=== PATIENT | male | born 1965 | race American Indian/Alaskan Native ===

== ENCOUNTER 2017-10-29 07:18 | Emergency (ER) | payer BC ==
[2017-10-29 07:59] VITALS: BP 154/84
--- NOTE | 2017-10-29 09:23 | Emergency Department Report ---
- General Chief Complaint: Upper Respiratory Infection Stated Complaint: SINUS INFECTION IN MY HEAD Time Seen by Provider: 10/29/17 09:14 Source: patient Mode of arrival: Ambulatory Limitations: No Limitations - History of Present Illness MD Complaint: rhinorrhea, nasal congestion, sinus pain -: Gradual, days(s) (3) Associated Symptoms: denies other symptoms - Related Data Allergies Allergy/AdvReac Type Severity Reaction Status Date / Time No Known Allergies Allergy Unverified 10/29/17 07:55 ED Review of Systems ROS: Stated complaint: SINUS INFECTION IN MY HEAD Other details as noted in HPI ED Past Medical Hx - Past Medical History Previous Medical History?: No - Surgical History Past Surgical History?: No - Social History Smoking Status: Never Smoker Substance Use Type: None ED Physical Exam - General Limitations: No Limitations General appearance: alert, in no apparent distress - Respiratory Respiratory exam: Absent: respiratory distress - Neurological Exam Neurological exam: Present: alert, oriented X3 - Psychiatric Psychiatric exam: Present: normal affect, normal mood ED Course Vital Signs 10/29/17 07:55 Temperature 98.9 F Pulse Rate 70 Respiratory 18 Rate Blood Pressure 154/84 O2 Sat by Pulse 97 Oximetry ED Medical Decision Making - Medical Decision Making Brief medical screening exam performed. No evidence of life or limb threatening emergency. No indications of infection. I recommended over-the- counter medications. Critical care attestation.: If time is entered above; I have spent that time in minutes in the direct care of this critically ill patient, excluding procedure time. ED Disposition Clinical Impression: Sinus headache, URI (upper respiratory infection) Disposition: MED SCREENING EXAM-LEFT Is pt being admited?: No Does the pt Need Aspirin: No Condition: Stable Instructions: Upper Respiratory Infection (ED) Referrals: ELLI GARCIA MD [Staff Physician] - 3-5 Days Forms: Work/School Release Form(ED)
== END 2017-10-29 10:10 | disposition left against medical advice (07) ==
LOC: ED 07:18
DX: J06.9 Acute upper respiratory infection, unspecified (principal)
CPT/HCPCS: 99282

== ENCOUNTER 2017-11-13 19:54 | Emergency (ER) | payer BC ==
[2017-11-13 20:32] VITALS: BP 144/92
[2017-11-13] MEDS ORDERED: ULTRAM ONE (22:59)
[2017-11-13] MEDS ORDERED: ULTRAM PO ONE (23:03)
[2017-11-13 23:23] LABS: Basophils % (Auto) 0.7 % (0.0-1.8); Eosinophils # (Auto) 0.1 K/mm3 (0.0-0.4); Eosinophils % (Auto) 1.4 % (0.0-4.3); Lymphocytes # (Auto) 1.9 K/mm3 (1.2-5.4); Lymphocytes % (Auto) 27.7 % (13.4-35.0); Mean Corpuscular HGB Conc 31 % (32-34); Mean Corpuscular Volume 82 fl (84-94); Monocytes # (Auto) 0.4 K/mm3 (0.0-0.8); Monocytes % (Auto) 6.5 % (0.0-7.3); Platelet Count 192 K/mm3 (140-440); Red Blood Count 5.35 M/mm3 (3.65-5.03); Red Cell Distribution Width 15.9 % (13.2-15.2)
[2017-11-13 23:24] LABS: Hematocrit 43.7 % (35.5-45.6); Hemoglobin 13.5 gm/dl (11.8-15.2); Mean Corpuscular Hemoglobin 25 pg (28-32)
--- NOTE | 2017-11-13 23:36 | XRay Report ---
FINAL REPORT PROCEDURE: XR HAND 3+V RT TECHNIQUE: RIGHT hand radiographs, AP, lateral, and oblique views. CPT 73018-BS HISTORY: right hand pain and swelling COMPARISON: No prior studies are available for comparison. FINDINGS: Fracture (s) and/or Dislocation(s): None . Alignment: Normal . Joint space(s): Normal . Soft tissues: Normal . Bone mineralization: Normal . Foreign bodies: None . IMPRESSION: Normal Examination .
[2017-11-13 23:38] LABS: Alanine Aminotransferase 17 units/L (7-56); Albumin 3.4 g/dL (3.9-5); BUN/Creatinine Ratio 13; Blood Urea Nitrogen 12 mg/dL (9-20); Calcium 10.3 mg/dL (8.4-10.2); Hemolysis Index 4; Uric Acid 6.8 mg/dL (3.5-7.6)
--- NOTE | 2017-11-14 00:36 | Emergency Department Report ---
Upper Extremity - HPI Chief Complaint: Extremity Problem,Nontraumatic Stated Complaint: RIGHT ARM PAIN Time Seen by Provider: 11/13/17 23:01 Upper Extremity: Right Hand Occurred When: 2 Days Symptoms: Yes Pain with Movement, Yes Swelling Other History: 52-year-old Chinese male comes to the emergency room with a complaint of right hand pain 7 out of 10 and swelling 2 days. Patient reports no injury to the extremity. He reports he is taking 800 mg 2 tablets ibuprofen around 3:30 PM today. Patient does report that he is left-handed and works at a [employer]. ED Review of Systems ROS: Stated complaint: RIGHT ARM PAIN Other details as noted in HPI Comment: All other systems reviewed and negative Constitutional: denies: chills, fever Musculoskeletal: joint swelling (right hand), arthralgia (right hand) ED Past Medical Hx - Past Medical History Previous Medical History?: No - Surgical History Past Surgical History?: No - Social History Smoking Status: Never Smoker Substance Use Type: None - Medications Home Medications: Home Medications Medication Instructions Recorded Confirmed Last Taken Type traMADol [Ultram 50 MG tab] 50 mg PO Q6HR PRN #10 tablet 10/29/17 Unknown Rx Ibuprofen [Motrin 800 MG tab] 800 mg PO Q8HR PRN #30 tablet 11/14/17 Unknown Rx traMADol [Ultram 50 MG tab] 50 mg PO Q4HR PRN #12 tablet 11/14/17 Unknown Rx Upper Extremity Exam - Exam General: Vital signs noted. No distress. Alert and acting appropriately. Shoulder Exam: Yes Normal Range of Motion in Shoulder, No Shoulder Tenderness, No Clavicle Tenderness, No Shoulder Deformity, No AC Joint Tenderness Hand: Yes Hand Tenderness, Yes Normal ROM in Digit(s) (nonerythematous no warmth non-cellulitic appearance), No Hand Deformity, No Digit Tenderness, No Digit(s) Deformity, No Tendon Dysfunction CMS Exam: Yes Normal Distal Pulses, Yes Normal Capillary Refill, Yes Normal Distal Sensation, No Broken Skin ED Course Vital Signs 11/13/17 11/13/17 20:19 20:31 Temperature 98.8 F 98.8 F Pulse Rate 64 60 Respiratory 18 18 Rate Blood Pressure 144/92 144/92 O2 Sat by Pulse 96 97 Oximetry ED Medical Decision Making - Medical Decision Making Patient has been evaluated by this provider fast track. Basic labs of CBC CMP ordered X-ray of right hand ordered which shows normal examination. Tramadol given given for pain management. Nontraumatic hand pain and swelling. We'll discharge patient on ibuprofen and tramadol. Patient needs to follow up with his primary care provider if symptoms persist or gets worse Critical care attestation.: If time is entered above; I have spent that time in minutes in the direct care of this critically ill patient, excluding procedure time. ED Disposition Clinical Impression: Right hand pain, Localized swelling on right hand Disposition: - TO HOME OR SELFCARE Is pt being admited?: No Does the pt Need Aspirin: No Condition: Stable Instructions: Arthralgia (ED) Additional Instructions: Please take pain medication as prescribed. You can apply ice to the hand. If his symptoms persist or gets worse please follow up with her primary care provider. Prescriptions: Ibuprofen [Motrin 800 MG tab] 800 mg PO Q8HR PRN #30 tablet PRN Reason: Pain , Severe (7-10) traMADol [Ultram 50 MG tab] 50 mg PO Q4HR PRN #12 tablet PRN Reason: Pain Referrals: PRIMARY CARE, [Primary Care Provider] - 3-5 Days Forms: Work/School Release Form(ED)
== END 2017-11-14 00:41 | disposition home or self-care (01) ==
LOC: ED 19:54
DX: M79.601 Pain in right arm (principal); M79.89 Other specified soft tissue disorders
CPT/HCPCS: 36415; 80053; 84550; 85025; 99284

== ENCOUNTER 2019-04-06 08:29 | Emergency (ER) | payer BC ==
[2019-04-06 08:35] VITALS: BP 185/87
--- NOTE | 2019-04-06 09:15 | Emergency Department Report ---
ED Abdominal Pain HPI - General Chief Complaint: Abdominal Pain Stated Complaint: FEVER,ABD PAIN, VOMITING Time Seen by Provider: 04/06/19 09:07 Source: patient Mode of arrival: Ambulatory Limitations: No Limitations - History of Present Illness Initial Comments: Mr. Mace is a healthy 53 yo male without significant past medical history who presents with 2 months of epigastric fullness worse at night. Also had indigestion. He's had intermittent vomiting constipation diarrhea for several months. He received colonoscopy 3 years ago which was normal. His PCP is Dr. Cortes at [facility]. 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 The symptoms occurs every few nights. Concerned about the cold sweats chills hot sweats that occur. Currently denies any pain. mother is healthy father is siblings are healthy MD Complaint: abdominal pain -: Gradual, month(s) (2) Location: epigastric Radiation: chest Severity: mild, moderate Quality: fullness Consistency: now resolved Improves With: other (nothing) Worsens With: other (at night) Context: other (has used laxatives and chavez seltzer for several months) Associated Symptoms: nausea, vomiting, diarrhea, constipation - Related Data Previous Rx's Medication Instructions Recorded Last Taken Type traMADoL [Ultram 50 MG tab] 50 mg PO Q6HR PRN #10 tablet 10/29/17 Unknown Rx Ibuprofen [Motrin 800 MG tab] 800 mg PO Q8HR PRN #30 tablet 11/14/17 Unknown Rx traMADoL [Ultram 50 MG tab] 50 mg PO Q4HR PRN #12 tablet 11/14/17 Unknown Rx Omeprazole 40 mg PO DAILY 30 Days #30 04/06/19 Unknown Rx capsule. Allergies Allergy/AdvReac Type Severity Reaction Status Date / Time No Known Allergies Allergy Verified 11/13/17 20:30 ED Review of Systems ROS: Stated complaint: FEVER,ABD PAIN, VOMITING Other details as noted in HPI Comment: All other systems reviewed and negative Constitutional: denies: fever, malaise Cardiovascular: denies: chest pain Gastrointestinal: abdominal pain, nausea, vomiting, diarrhea, constipation ED Past Medical Hx - Past Medical History Previous Medical History?: No - Surgical History Past Surgical History?: No - Family History Family history: no significant - Social History Smoking Status: Never Smoker Substance Use Type: None - Medications Home Medications: Home Medications Medication Instructions Recorded Confirmed Last Taken Type traMADoL [Ultram 50 MG tab] 50 mg PO Q6HR PRN #10 tablet 10/29/17 Unknown Rx Ibuprofen [Motrin 800 MG tab] 800 mg PO Q8HR PRN #30 tablet 11/14/17 Unknown Rx traMADoL [Ultram 50 MG tab] 50 mg PO Q4HR PRN #12 tablet 11/14/17 Unknown Rx Omeprazole 40 mg PO DAILY 30 Days #30 04/06/19 Unknown Rx capsule. ED Physical Exam - General Limitations: No Limitations General appearance: alert, in no apparent distress - Head Head exam: Present: atraumatic, normocephalic - Eye Eye exam: Present: normal appearance - ENT ENT exam: Present: mucous membranes moist - Neck Neck exam: Present: normal inspection, full ROM - Respiratory Respiratory exam: Present: normal lung sounds bilaterally. Absent: respiratory distress, wheezes, rales, rhonchi - Cardiovascular Cardiovascular Exam: Present: regular rate, normal rhythm, normal heart sounds. Absent: systolic murmur, diastolic murmur, rubs, gallop - GI/Abdominal GI/Abdominal exam: Present: soft, normal bowel sounds. Absent: distended, tenderness, guarding, rebound - Rectal Rectal exam: Present: deferred - Extremities Exam Extremities exam: Present: normal inspection - Neurological Exam Neurological exam: Present: alert, oriented X3 - Psychiatric Psychiatric exam: Present: normal affect, normal mood - Skin Skin exam: Present: warm, dry, intact, normal color. Absent: rash ED Course Vital Signs 04/06/19 08:34 Temperature 98.2 F Pulse Rate 69 Respiratory 18 Rate Blood Pressure 185/87 O2 Sat by Pulse 96 Oximetry ED Medical Decision Making - Medical Decision Making 1. Epigastric fullness at night, history of vomiting diarrhea constipation for several months. Differential diagnosis: GERD, peptic ulcer disease, IBS. I recommended cleaning diet. Also prescribed omeprazole. I encouraged referral to EGD to GI specialist performed who performed his colonoscopy. 2. Elevated blood pressure: I recommended repeat BP in the office of his PCP Dr. Cortes Critical care attestation.: If time is entered above; I have spent that time in minutes in the direct care of this critically ill patient, excluding procedure time. ED Disposition Clinical Impression: Abdominal pain, Elevated blood pressure reading Disposition: DC-01 TO HOME OR SELFCARE Is pt being admited?: No Does the pt Need Aspirin: No Condition: Stable Instructions: Irritable Bowel Syndrome (ED), Peptic Ulcer (ED) Additional Instructions: Your blood pressure today is 185/87. Please have your personal doctor recheck your blood pressure in the office. Prescriptions: Omeprazole 40 mg PO DAILY 30 Days #30 capsule. Referrals: PRIMARY CARE, [Referring] - 3-5 Days Forms: Work/School Release Form(ED)
== END 2019-04-06 09:24 | disposition home or self-care (01) ==
LOC: ED 08:29
DX: R10.13 Epigastric pain (principal); I10 Essential (primary) hypertension; K59.00 Constipation, unspecified; R11.2 Nausea with vomiting, unspecified; Z79.899 Other long term (current) drug therapy; Z79.1 Long term (current) use of non-steroidal anti-inflammatories (NSAID)
CPT/HCPCS: 99282

== ENCOUNTER 2019-04-12 06:21 | Observation (INO) | payer BC ==
[2019-04-12] MEDS ORDERED: ASPIRIN 325 MG TAB PO ONE (07:23)
[2019-04-12] MEDS ORDERED: cloNIDine 0.2 MG TAB PO ONE (07:49)
--- NOTE | 2019-04-12 07:52 | XRay Report ---
CHEST 1 VIEW, 04/12/2019 7:38 AM CLINICAL INFORMATION/INDICATION: Chest pain COMPARISON: None FINDINGS: SUPPORT DEVICES: None. HEART: The cardiac silhouette appears upper limits of normal in size. LUNGS/PLEURA: The lungs are clear of focal airspace disease or significant pleural effusion. ADDITIONAL FINDINGS: No additional acute findings. IMPRESSION: 1. No evidence of acute cardiopulmonary process. Signer Name: Elaine Porter MD Signed: 04/12/2019 7:48 AM Workstation Name: [id number]
--- NOTE | 2019-04-12 07:56 | Emergency Department Report ---
HPI - General Chief Complaint: Chest Pain Time Seen by Provider: 04/12/19 07:40 - HPI HPI: Room 3 The patient is a 53-year-old male presenting with a chief complaint of chest pain or shortness of breath. Patient states at 01:00 this morning he was awak ened with shortness of breath substernal chest pain diaphoresis nausea and vomiting. Patient scratches pain as substernal and intermittent in nature. The patient states he came to the ED 4 days ago for the same. Patient currently gives his chest pain score of 7/10. The patient states his last stress test was particular 5 years ago but he's never had a cardiac catheterization. Location: [See above] Duration: [See above] Quality: [See above] Severity: [See above] Timing: [See above] Context: [See above] Modifying factors: [See above] Associated signs and symptoms: [see above] ED Past Medical Hx - Past Medical History Previous Medical History?: No - Surgical History Past Surgical History?: No - Family History Family history: no significant - Social History Smoking Status: Never Smoker Substance Use Type: None (denies illicit drug use), Alcohol (occasional) - Medications Home Medications: Home Medications Medication Instructions Recorded Confirmed Last Taken Type traMADoL [Ultram 50 MG tab] 50 mg PO Q6HR PRN #10 tablet 10/29/17 Unknown Rx Ibuprofen [Motrin 800 MG tab] 800 mg PO Q8HR PRN #30 tablet 11/14/17 Unknown Rx traMADoL [Ultram 50 MG tab] 50 mg PO Q4HR PRN #12 tablet 11/14/17 Unknown Rx Omeprazole 40 mg PO DAILY 30 Days #30 04/06/19 Unknown Rx capsule. ED Review of Systems ROS: Stated complaint: SOB Other details as noted in HPI Constitutional: diaphoresis Eyes: denies: eye pain ENT: denies: throat pain Respiratory: shortness of breath Cardiovascular: chest pain Endocrine: no symptoms reported Gastrointestinal: nausea, vomiting Genitourinary: denies: dysuria Musculoskeletal: denies: back pain Neurological: denies: headache Physical Exam - Physical Exam Vital Signs: Vital Signs 04/12/19 04/12/19 06:28 07:14 Temperature 97.4 F L Pulse Rate 78 68 Respiratory 20 20 Rate Blood Pressure 201/114 Blood Pressure 195/103 [Right] O2 Sat by Pulse 98 98 Oximetry Physical Exam: GENERAL: The patient is well-developed well-nourished male lying on stretcher not appearing to be in acute distress. [] HEENT: Normocephalic. Atraumatic. Extraocular motions are intact. Patient has moist mucous membranes. NECK: Supple. Trachea midline CHEST/LUNGS: Clear to auscultation. There is no respiratory distress noted. HEART/CARDIOVASCULAR: Regular. There is no tachycardia. There is no gallop rub or murmur. ABDOMEN: Abdomen is soft, nontender. Patient has normal bowel sounds. There is no abdominal distention. SKIN: There is no rash. There is no edema. There is no diaphoresis. NEURO: The patient is awake, alert, and oriented. The patient is cooperative. The patient has normal speech MUSCULOSKELETAL: There is no evidence of acute injury. ED Course Vital Signs 04/12/19 04/12/19 06:28 07:14 Temperature 97.4 F L Pulse Rate 78 68 Respiratory 20 20 Rate Blood Pressure 201/114 Blood Pressure 195/103 [Right] O2 Sat by Pulse 98 98 Oximetry ED Medical Decision Making - Lab Data Result diagrams: 04/12/19 07:54 04/12/19 07:54 Laboratory Tests 04/12/19 04/12/19 04/12/19 07:54 07:54 07:54 WBC 9.5 RBC 5.46 H Hgb 14.3 Hct 44.4 MCV 81 L MCH 26 L MCHC 32 RDW 15.5 H Plt Count 196 Seg Neutrophils % Human Resources Services Specialist Sodium 138 Potassium 4.1 Chloride 103.2 Carbon Dioxide 22 Anion Gap 17 BUN 15 Creatinine 0.8 Estimated GFR > 60 BUN/Creatinine Ratio 19 Glucose 163 H Calcium 10.3 H Troponin T < 0.010 NT-Pro-B Natriuret Pep 33.31 - EKG Data -: EKG Interpreted by Nh EKG shows normal: sinus rhythm Rate: normal - EKG Data When compared to previous EKG there are: previous EKG unavailable Interpretation: nonspecific ST-T wave oxana - Radiology Data Radiology results: report reviewed (chest x-ray) Chest x-ray-no evidence of acute cardiopulmonary process - Differential Diagnosis ACS, hypertensive urgency, pericarditis, GERD, CHF Critical care attestation.: If time is entered above; I have spent that time in minutes in the direct care of this critically ill patient, excluding procedure time. ED Disposition Clinical Impression: Chest pain, Hypertension Disposition: DC-09 OP ADMIT IP TO THIS HOSP Is pt being admited?: Yes Does the pt Need Aspirin: Yes Condition: Fair Instructions: Chest Pain (ED), Hypertension (ED) Time of Disposition: 08:40 (hospitalist paged)
[2019-04-12 08:15] LABS: Hematocrit 44.4 % (35.5-45.6); Hemoglobin 14.3 gm/dl (11.8-15.2); Mean Corpuscular HGB Conc 32 % (32-34); Mean Corpuscular Volume 81 fl (84-94); Platelet Count 196 K/mm3 (140-440); Red Blood Count 5.46 M/mm3 (3.65-5.03); Red Cell Distribution Width 15.5 % (13.2-15.2)
[2019-04-12 08:27] LABS: BUN/Creatinine Ratio 19; Blood Urea Nitrogen 15 mg/dL (9-20); Calcium 10.3 mg/dL (8.4-10.2); Hemolysis Index 6
--- NOTE | 2019-04-12 11:40 | History and Physical Report ---
History of Present Illness Date of examination: 04/12/19 Date of admission: 04/12/19 08:50 Chief complaint: Chest pain SOB History of present illness: The patient is a 53-year-old with morbid obesity, presents with a chief complaint of chest pain and shortness of breath. Patient states that he woke up from sleep with chest pain and shortness of breath. Chest pain is 7 out of 10 in intensity, midsternal, dull pain with no radiation. Chest pain worse on exertion. Shortness of exertion also worse on exertion. In addition he had diaphoresis, nausea and vomiting. Patient became concerned therefore came to ED for evaluation. He was seen and evaluated in ED. Initial Troponin was normal. Initial BP was 201/114. he was given Clonidine 0.2 mg po stat, and BP improved. Will place on observation to rule out acute coronary syndrome and to manage hypertensive urgency. Past History Past Medical History: other (morbid obesity) Past Surgical History: No surgical history Social history: full code, other (Alcohol occasionally). denies: smoking Family history: no significant family history Medications and Allergies Allergies Allergy/AdvReac Type Severity Reaction Status Date / Time No Known Allergies Allergy Verified 11/13/17 20:30 Home Medications Medication Instructions Recorded Confirmed Last Taken Type Hydralazine HCl 50 mg PO BID #60 tablet 04/13/19 Unknown Rx amLODIPine 10 mg PO QDAY #30 tablet 04/13/19 Unknown Rx Active Meds: Active Medications Amlodipine Besylate (Amlodipine) 5 mg PO QDAY ISAÍAS Hydralazine HCl (Apresoline) 50 mg PO Q8HR ISAÍAS Review of Systems All systems: negative (No headache, no vomiting, no abd pain. All other systems reviewed and are negative) Exam - Physical Exam Narrative exam: Gen: Not in acute distress, lying in bed,morbidly obese HEENT: Normocephalic, atraumatic Neck: supple, no JVD Heart: S1 and S2 reg, no murmurs, rubs or gallop Lungs: Clear, no wheezing, Abd: soft, non tender, non distended, normal BS, Ext: No edema, no clubbing, no cyanosis Neuro: Awake, alert, oriented X 3, No focal neurological signs - Constitutional Vitals: Temp Pulse Resp BP Pulse Ox 97.4 F L 72 14 162/92 96 04/12/19 06:28 04/12/19 08:57 04/12/19 08:57 04/12/19 08:57 04/12/19 08:57 Results - Labs CBC & Chem 7: 04/13/19 07:34 04/13/19 07:34 Labs: Abnormal lab results 04/12/19 04/12/19 Range/Units 07:54 07:54 RBC 5.46 H (3.65-5.03) M/mm3 MCV 81 L (84-94) fl MCH 26 L (28-32) pg RDW 15.5 H (13.2-15.2) % Glucose 163 H (75-100) mg/dL Calcium 10.3 H (8.4-10.2) mg/dL Assessment and Plan Hypertensive urgency Admit to Tele Clonidine given in ED Add Amlodipine Chest pain serial troponins normal Get stress test in am get d-dimer Morbid obesity I counseled him on diet and exercise Full code status
[2019-04-12] MEDS ORDERED: ACETAMINOPHEN 325 MG TAB PO PRN (11:56)
[2019-04-12] MEDS ORDERED: MORPHINE 2 MG/1 ML INJ IV PRN (11:56)
[2019-04-12] MEDS ORDERED: ALBUTEROL 2.5 MG/3 ML NEBU IH PRN (11:56)
[2019-04-12] MEDS ORDERED: ONDANSETRON 4 MG/2 ML INJ IV PRN (11:56)
[2019-04-12] MEDS ORDERED: NITROGLYCERIN 0.4 MG TAB SUBL SL PRN (11:58)
[2019-04-12 12:36] LABS: Basophils % (Manual) 0 % (0.0-1.8); Eosinophils % (Manual) 0 % (0.0-4.3); Total Cells Counted 100
[2019-04-12 12:37] LABS: Anisocytosis 1+; Platelet Estimate Consistent w Auto
[2019-04-12] MEDS: amLODIPine 5 MG TAB PO SCH (13:16)
[2019-04-12] MEDS: hydrALAZINE 25 MG TAB PO SCH ×2 (13:16→21:49)
[2019-04-12] MEDS: PANTOPRAZOLE 40 MG INJ IV SCH (21:48)
[2019-04-13] MEDS: hydrALAZINE 25 MG TAB PO SCH ×2 (05:11→13:50)
[2019-04-13] MEDS ORDERED: REGADENOSON 0.4 MG/5 ML INJ IV ONE ×2 (07:59→08:06)
[2019-04-13 08:45] LABS: BUN/Creatinine Ratio 14; Blood Urea Nitrogen 14 mg/dL (9-20); Calcium 10.3 mg/dL (8.4-10.2); Hemolysis Index 44
[2019-04-13 08:46] LABS: Basophils % (Auto) 0.7 % (0.0-1.8); Eosinophils # (Auto) 0.1 K/mm3 (0.0-0.4); Eosinophils % (Auto) 1.3 % (0.0-4.3); Hematocrit 42.3 % (35.5-45.6); Hemoglobin 13.6 gm/dl (11.8-15.2); Lymphocytes # (Auto) 1.5 K/mm3 (1.2-5.4); Lymphocytes % (Auto) 23.1 % (13.4-35.0); Mean Corpuscular HGB Conc 32 % (32-34); Mean Corpuscular Volume 81 fl (84-94); Monocytes # (Auto) 0.4 K/mm3 (0.0-0.8); Platelet Count 177 K/mm3 (140-440); Red Cell Distribution Width 15.7 % (13.2-15.2)
[2019-04-13] MEDS ORDERED: ONDANSETRON 4 MG/2 ML INJ ONE (09:24)
--- NOTE | 2019-04-13 10:37 | Treadmill Report ---
NUCLEAR STRESS TEST REFERRING PHYSICIAN: Dr. Car. PROCEDURE IN DETAIL: The patient was brought to the stress lab in a postoperative state, given 10 mCi of technetium 99m at rest. The patient underwent rest imaging. The patient underwent Lexiscan stress test. At peak stress, the patient was given 26 mCi of technetium 99m. Shortly thereafter, underwent stress imaging. Raw imaging reveals mild GI artifact, no significant motion artifact. SPECT images examined carefully in horizontal long axis, vertical long axis, short axis views. Technically a difficult study due to GI artifact and body habitus, but grossly probably normal without evidence of significant degree of ischemia or prior infarction. Next, normal left ventricular systolic performance, estimated ejection fraction of 55%. No TID. CONCLUSIONS: 1. Technically a difficult study due to GI artifact and body habitus; however, probably grossly normal without evidence of significant degree of ischemia or prior infarction. 2. Normal left ventricular systolic performance without evidence of transient ischemic dilatation or stress-induced segmental wall motion abnormalities. [facility]# [id number] SBVeronica/NTS
[2019-04-13] MEDS: amLODIPine 5 MG TAB PO SCH (11:03)
[2019-04-13] MEDS: PANTOPRAZOLE 40 MG INJ IV SCH (11:05)
[2019-04-13] MEDS ORDERED: amLODIPine 5 MG TAB PO STA (11:18)
[2019-04-13] MEDS ORDERED: hydrALAZINE 20 MG/1 ML INJ IV PRN (11:18)
--- NOTE | 2019-04-13 14:19 | Discharge Summary ---
Providers - Providers Date of Admission: 04/12/19 08:50 Date of discharge: 04/13/19 Attending physician: BONNY SAAB 04/12/19 Consult to Cardiac Rehabilitation [CONS] Routine Reason For Exam: Phase I Primary care physician: DIRECTOR FEDERAL Hospitalization Condition: Fair Hospital course: The patient is a 53-year-old with morbid obesity, presents with a chief complaint of chest pain and shortness of breath. Patient states that he woke up from sleep with chest pain and shortness of breath. Chest pain is 7 out of 10 in intensity, midsternal, dull pain with no radiation. Chest pain worse on exertion. Shortness of exertion also worse on exertion. In addition he had diaphoresis, nausea and vomiting. Patient became concerned therefore came to ED for evaluation. He was seen and evaluated in ED. Initial Troponin was normal. Initial BP was 201/114. he was given Clonidine 0.2 mg po stat, and BP improved. Patient was placed on obervation. Stress test done following day was normal so he was discharged home. Chest pain due to GERD. Disposition: DC- TO HOME OR SELFCARE - Discharge Diagnoses (1) GERD (gastroesophageal reflux disease) Status: Acute (2) Hypertensive urgency Status: Acute (3) Chest pain Status: Acute Core Measure Documentation - Palliative Care Palliative Care/ Comfort Measures: Not Applicable - Core Measures Any of the following diagnoses?: none Exam - Constitutional Vitals: Temp Pulse Resp BP Pulse Ox 98.0 F 72 20 129/70 98 04/13/19 11:15 04/13/19 14:10 04/13/19 11:15 04/13/19 14:10 04/13/19 11:15 Plan Activity: advance as tolerated Diet: low fat, low cholesterol, low salt Plan of Treatment: 1.Follow up with PCP or [facility] in 1 week. Follow up with: PRIMARY CARE, [Primary Care Provider] - 7 Days Prescriptions: amLODIPine 10 mg PO QDAY #30 tablet Hydralazine HCl 50 mg PO BID #60 tablet
[2019-04-13 15:07] VITALS: BP 135/78
[2019-04-14] MEDS ORDERED: amLODIPine 10 MG TAB PO SCH (10:00)
== END 2019-04-13 16:16 | disposition home or self-care (01) ==
LOC: ED 06:21 → 4A 08:50
PROVIDERS: ADMIT Internal Medicine; ATTEND Internal Medicine
DX: R07.89 Other chest pain (principal); R06.02 Shortness of breath; I16.0 Hypertensive urgency; R11.2 Nausea with vomiting, unspecified
CPT/HCPCS: 36415; 71045; 78452; 80048; 82962; 83880; 84484; 85007; 85025; 85379; 87116; 93005; 93010; 93017; 96374; 96375; 99284; A9502; C9113; G0378; J0360; J2405; J2785

== ENCOUNTER 2021-04-20 13:27 | Emergency (ER) | payer BC, OTHER ==
[2021-04-20 13:31] VITALS: BP 196/116
--- NOTE | 2021-04-20 14:07 | Emergency Department Report ---
ED Upper Extremity Inj HPI - General Chief Complaint: Extremity Injury, Upper Stated Complaint: FINGER INJURY Time Seen by Provider: 04/20/21 13:35 Source: patient Mode of arrival: Ambulatory Limitations: No Limitations - History of Present Illness Initial Comments: Patient is a 55-year-old male presents emergency room complaints of a right pinky injury that occurred a couple days ago. 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 He states since then he has had pain and swelling and difficulty moving the finger. He reports that he went to urgent care and had an x-ray performed but is still awaiting his results. He states he was placed in a finger splint. He denies any numbness or weakness. He has a history of hypertension reports that he did not take his medication today but states he does have it at home. No allergies to medications. - Related Data Previous Rx's Medication Instructions Recorded Last Taken Type Hydralazine HCl 50 mg PO BID #60 tablet 04/13/19 Unknown Rx amLODIPine 10 mg PO QDAY #30 tablet 04/13/19 Unknown Rx Acetaminophen/Codeine [Tylenol 1 tab PO Q6H PRN #12 tab 04/20/21 Unknown Rx /Codeine # 3 tab] Naproxen 500 mg PO BID PRN #14 tablet 04/20/21 Unknown Rx Allergies Allergy/AdvReac Type Severity Reaction Status Date / Time No Known Allergies Allergy Verified 11/13/17 20:30 ED Review of Systems ROS: Stated complaint: FINGER INJURY Other details as noted in HPI Comment: All other systems reviewed and negative ED Past Medical Hx - Past Medical History Hx Hypertension: Yes - Social History Smoking Status: Never Smoker - Medications Home Medications: Home Medications Medication Instructions Recorded Confirmed Last Taken Type Hydralazine HCl 50 mg PO BID #60 tablet 04/13/19 Unknown Rx amLODIPine 10 mg PO QDAY #30 tablet 04/13/19 Unknown Rx Acetaminophen/Codeine [Tylenol 1 tab PO Q6H PRN #12 tab 04/20/21 Unknown Rx /Codeine # 3 tab] Naproxen 500 mg PO BID PRN #14 tablet 04/20/21 Unknown Rx ED Physical Exam - General Limitations: No Limitations General appearance: alert, in no apparent distress - Head Head exam: Present: atraumatic, normocephalic - Eye Eye exam: Present: normal appearance - ENT ENT exam: Present: mucous membranes moist - Extremities Exam Extremities exam: Present: other (ttp to the right pinky, mild edema, no eryt abby or increased warmth, skin is intact, decreased flexion secondary to pain/swelling, neurovascularly intact) - Neurological Exam Neurological exam: Present: alert, oriented X3 - Psychiatric Psychiatric exam: Present: normal affect, normal mood - Skin Skin exam: Present: warm, dry, intact ED Course Vital Signs 04/20/21 13:30 Temperature 98 F Pulse Rate 78 Respiratory 16 Rate Blood Pressure 196/116 [Right] O2 Sat by Pulse 96 Oximetry ED Medical Decision Making - Radiology Data Radiology results: report reviewed XR hand 3+V RT INDICATION: crushed right pinky. COMPARISON: 11/13/2017. FINDINGS: No acute skeletal abnormality. Soft tissue swelling is noted at the right little finger. No radiodense foreign bodies are seen. IMPRESSION: 1. No acute fracture or dislocation. Signer Name: Kyler Solano MD Signed: 04/20/2021 1:14 PM Workstation Name: [facility] - Medical Decision Making Patient is a 55-year-old male presents emergency room complaints of a right pinky injury that occurred a couple days ago. 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 He states since then he has had pain and swelling and difficulty moving the finger. He reports that he went to urgent care and had an x-ray performed but is still awaiting his results. He states he was placed in a finger splint. He denies any numbness or weakness. He has a history of hypertension reports that he did not take his medication today but states he does have it at home. No allergies to medications. Vitals with elevated blood pressure, patient has chronic hypertension, he did not take his medication, he is not having any symptoms related to high blood pressure, the up-to-date medical literature does not recommend emergently lowering asymptomatic elevated blood pressure, discussed the importance of patient taking his medication once he returns home and discussed primary care follow-up and lifestyle modifications. on exam: ttp to the right pinky, mild edema, no erythema or increased warmth, skin is intact, decreased flexion secondary to pain/swelling, neurovascularly intact. XR right hand: 1. No acute fracture or dislocation. Discussed findings with patient. Advised patient to remain in aluminum splint given by urgent care. Discussed orthopedic follow-up. Advised patient that he would likely need to discuss with his job regarding orthopedic preference. Advised patient Please take medication as prescribed. May use ice 15 minutes at a time. Follow-up with orthopedic doctor. Return to emergency room for any new or worsening symptoms. Please be sure to take your blood pressure medication as prescribed by your primary care doctor. Eat a low-sodium diet. Incorporate 30-60 minutes of daily exercise. Critical care attestation.: If time is entered above; I have spent that time in minutes in the direct care of this critically ill patient, excluding procedure time. ED Disposition Clinical Impression: Elevated blood pressure reading Crushing injury of right little finger Qualifiers: Encounter type: initial encounter Qualified Code(s): S67.196A - Crushing injury of right little finger, initial encounter Disposition: HOME / SELF CARE / HOMELESS Is pt being admited?: No Does the pt Need Aspirin: No Condition: Stable Instructions: Crush Injury of the Hand Additional Instructions: Please take medication as prescribed. May use ice 15 minutes at a time. Follow-up with orthopedic doctor. Return to emergency room for any new or worsening symptoms. Please be sure to take your blood pressure medication as prescribed by your primary care doctor. Eat a low-sodium diet. Incorporate 30-60 minutes of daily exercise. Prescriptions: Naproxen 500 mg PO BID PRN #14 tablet PRN Reason: moderate pain Acetaminophen/Codeine [Tylenol /Codeine # 3 tab] 1 tab PO Q6H PRN #12 tab PRN Reason: severe pain Ref[facility]: [facility] [Provider Group] - 2-3 Days WINNIE MAHAJAN MD [Staff Physician] - 2-3 Days Time of Disposition: 14:25 Print Language: [place]
--- NOTE | 2021-04-20 14:19 | XRay Report ---
XR hand 3+V RT INDICATION: crushed right pinky. COMPARISON: 11/13/2017. FINDINGS: No acute skeletal abnormality. Soft tissue swelling is noted at the right little finger. No radiodense foreign bodies are seen. IMPRESSION: 1. No acute fracture or dislocation. Signer Name: Kyler Solano MD Signed: 04/20/2021 2:14 PM Workstation Name: [id number]
== END 2021-04-20 14:43 | disposition home or self-care (01) ==
LOC: ED 13:27
DX: S67.196A Crushing injury of right little finger, initial encounter (principal); I10 Essential (primary) hypertension; W31.9XXA Contact with unspecified machinery, initial encounter; Y93.H2 Activity, gardening and landscaping; Y92.89 Other specified places as the place of occurrence of the external cause; Y99.8 Other external cause status
CPT/HCPCS: 99283